=== PATIENT | female | born 1945 | race Caucasian/White ===

== ENCOUNTER → 2018-01-14 13:09 | Outpatient (CLI) | payer MEDICARE, OTHER | END | disposition home or self-care (01) | LOC: D.RT 13:00 | DX: R91.8 Other nonspecific abnormal finding of lung field (principal); J45.909 Unspecified asthma, uncomplicated ==

== ENCOUNTER 2018-12-11 06:35 | Outpatient (CLI) | payer MEDICARE, OTHER ==
[~2018-12-11] VITALS: Ht 160 cm; Wt 68.6 kg
--- NOTE | ~2018-12-11 | HEMODYNAMI ---
PATIENT:DARIA GRAY MEDICAL RECORD: [id number] : 47 LOCATION:[facility] ADMISSION DATE: 12/11/18 Generatedon:12/11/201812:45 Patient name: DARIA GRAY Patient #: [id number] SSN: : 1945 Date of study: 12/11/2018 Page: Of Hemodynamic Procedure Report Patient Data Patient Demographics Procedure consent was obtained First Name: DARIA Gender: Female Last Name: ISAAC : 1945 [facility] Initial: KAHLIL Age: 73 year(s) Patient #: [id number] Race: Unknown Additional ID: [id number] Contact details [address]: [address] [place] [address] DRIVE State: [place] City: [place] Zip code: [address] Admission Admission Data Admission Date: 12/11/2018 Admission Time: 6:35 Procedure Procedure Types Cath Procedure Diagnostic Procedure LHC LHC w/Coronaries Procedure Description Procedure Date Procedure Date: 12/11/2018 Procedure Start Time: 12:33 Procedure End Time: 12:41 Procedure Staff Name Function Dakota Salmeron MD Performing Physician Khadar Jones RT Monitor Aruna Porter RT Scrub Remi Cuellar RN Nurse Procedure Data Cath Procedure Fluoroscopy Diagnostic fluoroscopy Total fluoroscopy Time: 0.8 time: 0.8 min min Diagnostic fluoroscopy Total fluoroscopy dose: 102 dose: 102 mGy mGy Contrast Material Contrast Material Type Amount (ml) Isovue 300 58 Entry Location Entry Primary Successful Side Size Upsize Upsize Entry Closure Succes sful Closure Location (Fr) 1 (Fr) 2 (Fr) Remarks Device Remarks Femoral Right 5 Fr Exoseal artery Estimated blood loss: 10 ml Diagnostic catheters Device Type Used For End Catheter Placement MULTIPACK Pigtail 5 Fr Procedure catheter MULTIPACK JL 4.0 5Fr Procedure catheter MULTIPACK 3DRC 5Fr Procedure catheter Procedure Complications No complications Procedure Medications Medication Administration Route Dosage Oxygen etCO2 Nasal cannula 2 l/min Heparin Flush Bag added to field 2 bags (1000units/500ml NS) 0.9% NaCl I.V. 100 ml/hr Lidocaine 2% added to field 20 Fentanyl I.V. 50 mcg Versed I.V. 1 mg Fentanyl I.V. 50 mcg Versed I.V. 1 mg Hemodynamics Rest Heart Rate: 51 (bpm) Pressure Samples Time Site Value (mmHg) Purpose Heart Use Rate(bpm) 12:36 AO 103/52(73) Snapshot 55 12:36 AO 95/49(67) Snapshot 56 Snapshots Pre Cath Intra NCS Post Cath Vital Signs Time Heart Resp SPO2 etCO2 NIBP Rhythm Pain Sedation Rate (ipm) (%) (mmHg) (mmHg) Status Level (bpm) 12:23:55 54 16 97 0 119/54(79) NSR 0 (11) 10(A) , No pain 12:28:05 48 16 99 0 115/55(76) NSR 0 (11) 10(A) , No pain 12:32:21 54 16 99 0 95/53(67) NSR 0 (11) 10(A) , No pain 12:36:31 56 17 98 0 109/47(69) NSR 0 (11) 9(A) , No pain 12:40:45 56 16 98 0 99/47(71) NSR 0 (11) 9(A) , No pain Medications Time Medication Route Dose Verified Delivered Reason Notes Effe ctiveness by by 12:18:32 Oxygen etCO2 2 Dakota Remi Per Nasal l/min Jaron Cuellar RN physician cannula 12:18:40 Heparin Flush added 2 Dakota Remi used for Bag to bags Jaron Cuellar RN procedure (1000units/500ml field NS) 12:22:32 0.9% NaCl I.V. 100 Dakota Remi Per ml/hr Jaron Cuellar RN physician 12:22:43 Lidocaine 2% added 20ml Dakota Remi used for to vial Jaron Cuellar RN procedure field 12:32:15 Fentanyl I.V. 50 Dakota Remi for mcg Jaron Cuellar RN sedation 12:32:20 Versed I.V. 1 mg Dakota Khalil for Jaron Cuellar RN sedation 12:35:16 Fentanyl I.V. 50 Dakota Remi for mcg Jaron Cuellar RN sedation 12:35:19 Versed I.V. 1 mg Dakota Cuellar RN sedation Procedure Log Time Note 12:00:00 Khadar Jones RT(R) sent for patient. Start room use. 12:08:16 Time tracking: Regular hours (M-F 7:00 - 5:00) 12:08:20 Plan of Care:Hemodynamics will remain stable., Cardiac rhythm will remain stable., Comfort level will be maintained., Respiratory function will remain adequate., Patient/ family verbilizes understanding of procedure., Procedure tolerated without complication., Recovers from procedure without complications.. 12:14:39 Patient received from ED to CCL 3 Alert and oriented. Tansferred to table in Supine position. 12:14:40 Warm blankets applied, and luiza hugger turned on for patient comfort. 12:14:40 Correct patient and procedure confirmed by team. 12:14:43 Signed procedure consent form obtained from patient. 12:14:44 ECG and BP/O2 sat monitors applied to patient. 12:14:45 Full Disclosure recording started 12:18:32 Oxygen 2 l/min etCO2 Nasal cannula was administered by Remi Cuellar RN; Per physician; 12:18:40 Heparin Flush Bag (1000units/500ml NS) 2 bags added to field was administered by Remi Cuellar RN; used for procedure; 12:22:32 0.9% NaCl 100 ml/hr I.V. was administered by Remi Cuellar RN; Per physician; 12:22:43 Lidocaine 2% 20ml vial added to field was administered by Remi Cuellar RN; used for procedure; 12:22:44 Vital chart was started 12:28:35 Baseline sample Acquired. 12:28:41 Rhythm: sinus bradycardia 12:28:49 H&P Date Dictated: 12/11/2018 Emergent; H&P N/A. 12:28:50 Pre-procedure instructions explained to patient. 12:28:51 Pre-op teaching completed and patient verbalized understanding. 12:28:53 Family in patients room. 12:28:56 Patient NPO since Midnight. 12:29:00 Is the patient allergic to Iodine/contrast media? No. 12:29:04 Is patient on blood thinner?Yes 12:29:07 ACC The patient was administered the following blood thiners within the last 24 hours: ACCPlavix 12:29:26 Loaded on Plavix in the ER. 12:29:27 Patient diabetic? Yes. 12:29:29 If diabetic: On Metformin? Yes 12:29:30 If on Metformin: Last Dose? 12/11/2018 12:29:33 Previous problem with sedation/anesthesia? No ? 12:29:38 Snore? Yes 12:29:39 Sleep apnea? Yes 12:29:40 Deviated septum? No 12:29:41 Opens mouth fully? Yes 12:29:42 Sticks out tongue? Yes 12:29:44 Airway obstruction? No ? 12:29:46 Dentures? No ? 12:29:49 Pre procedure: right dorsailis pedis pulse 1+ Palpable, but thready & weak; easily obliterated 12:29:59 IV RIGHT WRIST 12:30:03 Patient pain scale 0/10 ?. 12:30:18 IV patent on arrival in right wrist with 0.9% NaCl at KVO. 12:30:32 Right groin area was prepped with chlora-prep and draped in sterile fashion 12:30:35 Alarms reviewed by R. N. 12:30:36 Sharps counted by scrub and verified by R.N. 12:30:39 Use device set Femoral Dx 12:30:41 Tegaderm 4 x 4 (1626W) opened to sterile field. 12:30:42 ACIST Hand Control (75097) opened to sterile field. 12:30:42 ACIST Manifold (03581) opened to sterile field. 12:30:44 ACIST Syringe (57742) opened to sterile field. 12:30:45 Bag Decanter (2002S) opened to sterile field. 12:30:45 Medline Cath Pack ([id number]) opened to sterile field. 12:30:54 EMERALD Guide Wire (319-026) opened to sterile field. 12:31:01 SHEATH 5FR [place] (XMA941) opened to sterile field. 12:31:02 DIAGNOSTIC Multipack 5Fr catheter set ([id number]) opened to sterile field. 12:31:53 --------ALL STOP TIME OUT------ 12:31:54 Final Timeout: patient, procedure, and site verified with staff and physician. All members of the team are in agreement. 12:31:56 Right groin site verified by team. 12:32:04 Fire Safety Assessment: A--An alcohol-based skin anteseptic being used preoperatively., C--Open oxygen or nitrous oxide is being used., D--An ESU, laser, or fiber-optic light is being used. 12:32:07 Physical assessment completed. ASA score P 2 - A patient with mild systemic disease as per Dakota Salmeron MD. 12:32:10 Sedation plan: IV Moderate Sedation Medication:Versed, Fentanyl 12:32:15 Fentanyl 50 mcg I.V. was administered by Remi Cuellar RN; for sedation; 12:32:20 Versed 1 mg I.V. was administered by Remi Cuellar RN; for sedation; 12:33:35 Procedure started. 12:33:39 Local anesthetic to right femoral artery with Lidocaine 2% by Dakota Salmeron MD.INITIAL ACCESS ONLY 12:35:15 A 5 Fr sheath was inserted into the Right Femoral artery 12:35:16 Fentanyl 50 mcg I.V. was administered by Remi Cuellar RN; for sedation; 12:35:19 Versed 1 mg I.V. was administered by Remi Cuellar RN; for sedation; 12:35:24 A MULTIPACK Pigtail 5 Fr catheter was advanced over the wire and used for Procedure. 12:35:27 LV angiography performed. 12:35:28 LV gram done using CASAREZ 12:35:40 EF : 60 % 12:35:46 Injector settings: Ml/sec: 10, Volume: 20, 12:35:50 Catheter removed. 12:35:56 A MULTIPACK JL 4.0 5Fr catheter was advanced over the wire and used for Procedure. 12:36:11 LCA angiography performed. 12:36:27 Catheter removed. 12:36:42 A MULTIPACK 3DRC 5Fr catheter was advanced over the wire and used for Procedure. 12:37:36 RCA angiography performed. 12:37:38 Catheter removed. 12:37:45 EXOSEAL 5Fr (EX500) opened to sterile field. 12:37:58 Sheath removed intact; hemostasis achieved with Exoseal to the Right Femoral artery. 12:38:00 Procedure ended.(Physican Out) 12:38:16 Fluoroscopy time 00.80 minutes. 12:38:20 Fluoroscopy dose: 102 mGy 12:38:20 Flurop Dose total: 102 12:39:16 Contrast amount:Isovue 300 58ml. 12:39:20 Sharps counted by scrub and verified by R.N. 12:39:23 Insertion/operative site no bleeding no hematoma. 12:39:27 Post-op/insertion site Right Femoral artery dressed using a 4 x 4 and Tegaderm. 12:39:27 Post Procedure Pulses reassessed and unchanged 12:39:30 Post-procedure physical assessment completed. ASA score P 2 - A patient with mild systemic disease as per Dakota Salmeron MD. 12:39:32 Post procedure rhythm: unchanged. 12:39:35 Estimated blood loss: 10 ml 12:39:37 Post procedure instruction explained to patient.Patient verbalizes understanding. 12:39:37 Patient needs reinforcement of post procedure teaching. 12:40:08 Procedure and supply charges have been captured, reviewed, submitted and are correct. 12:40:10 Procedure Complication : No complications 12:40:12 Vital chart was stopped 12:40:13 See physician's report for complete and final results. 12:40:16 Report given to [facility]. 12:41:34 Patient transfered to [facility] with Bed. 12:41:36 Procedure ended. 12:41:36 Full Disclosure recording stopped 12:45:07 End room use (Document Last) Device Usage Item Name Manufacture Quantity Catalog Hospital Part Current Minimal L ot# / Number Charge Number Stock Stock Serial# Code Tegaderm 4 3M 1 1626W [id number] 377408 5 x 4 (1626W) ACIST Hand Acist 1 06273 242786 663963 091039 5 Control Medical (25917) Systems Inc ACIST Acist 1 09092 038227 403284 320586 5 Manifold Medical (54803) Systems Inc ACIST Acist 1 41364 553615 479547 928340 20 Syringe Medical (42740) Systems Inc Bag Microtek 1 766430 73069 252457 5 Decanter Medical Inc. () Medline Medline 1 [id number] 414367 47259 576611 5 Cath Pack ([id number]) EMERALD Cardinal 1 502-455 854472 684089 5 Guide Wire [facility] (502455) SHEATH 5FR Terumo 1 RKW805 945490 600280 651654 5 [place] (COG706) DIAGNOSTIC Cardinal 1 BP8687 132937 70773 196542 30 Multipack Health 5Fr catheter set (HX7447) MULTIPACK Cardinal 1 381663 5 Pigtail 5 Health Fr catheter MULTIPACK Cardinal 1 315164 5 JL 4.0 5Fr Health catheter MULTIPACK Cardinal 1 589347 5 3DRC 5Fr Health catheter EXOSEAL 5Fr Cardinal 1 EX500 376188 174430 808650 10 (EX500) Health Signature Audit [place] Stage Time Signature Unsigned Intra-Procedure 12/11/2018 Khadar Jones 12:45:41 PM RT(R) Signatures Monitor : Khadar Jones RT Signature : Date : Time : [address] [address]
[2018-12-11] MEDS ORDERED: GLUCOPHAGE500 MG PO ×2 (06:51→06:52)
[2018-12-11] MEDS ORDERED: LISINOPRIL-HCT1 EAC8 PO (06:52)
[2018-12-11] MEDS ORDERED: ALENDRONAT70 MG/75 M PO (06:52)
[2018-12-11] MEDS ORDERED: ARICEPT23 MG PO (06:52)
[2018-12-11] MEDS ORDERED: SINGULAIR10 MG PO (06:52)
[2018-12-11] MEDS ORDERED: BAYER CHEWABLE81 MG PO (06:53)
[2018-12-11 06:55] LABS: BASOPHILS 0.1 % (0-2); EOSINOPHILS 0.9 % (0-7); HEMATOCRIT 39.7 % (36.0-48.0); HEMOGLOBIN 13.5 g/dL (12-16); IMMATURE GRANULOCYTES 0.1 % (0-5); LYMPHOCYTES 34.9 % (15-50); MCH 29.3 pg (26.0-34.0); MCV 86.1 fL (80.0-100.0); MEAN PLATELET VOLUME 9.5 fL (7.4-10.4); PLATELET COUNT 243 10x3/uL (130-400); RBC 4.61 10x6/uL (4.00-5.40); RDW 12.4 % (11.5-14.5); WBC 7.4 10x3/uL (4.8-10.8)
[2018-12-11 07:01] LABS: APTT 30.8 SECONDS (22.8-39.4); INR 1.01 (0.85-1.17); PROTIME 12.8 SECONDS (11.6-15.0)
[2018-12-11 07:06] LABS: ALBUMIN 3.8 g/dL (3.4-5.0); ALKALINE PHOSPHATASE 34 U/L (46-116); ALT (SGPT) 37 U/L (10-68); BILIRUBIN - TOTAL 0.44 mg/dL (0.2-1.3); CALC OSMOLALITY 287 mosm/kg (275-300); CARBON DIOXIDE 27.9 mmol/L (21.0-32.0); CHLORIDE - SERUM 103 mmol/L (98-107); CREATININE - SERUM 0.9 mg/dL (0.6-1.3); GLUCOSE 134 mg/dL (74-106); POTASSIUM - SERUM 3.8 mmol/L (3.5-5.1); PROTEIN - SERUM 7.6 g/dL (6.4-8.2); SODIUM 142 mmol/L (136-145); UREA NITROGEN 21 mg/dL (7-18); eGFR NON AFRICAN AMERICAN 65 mL/min (90-120)
[2018-12-11 07:18] LABS: CKMB 1.5 U/L (0.0-3.6); CREATINE KINASE 114 UL (21-215); MAGNESIUM - SERUM 1.5 mg/dL (1.8-2.4); TROPONIN-I < 0.017 ng/mL (0.000-0.060)
--- NOTE | 2018-12-11 13:10 | NUR ---
TRANSFER FROM LEGAL PRACTICE MANAGER. VS WNL. RIGHT GROIN STABLE WITHOUT BLEEDING OR HEMATOMA NOTED. WILL MONITOR.
[2018-12-11 13:22] VITALS: BP 113/58; Ht 160 cm; Wt 68.6 kg
--- NOTE | 2018-12-11 14:51 | NUR ---
BED REST UP. GROIN STABLE.
--- NOTE | 2018-12-11 15:11 | NUR ---
IV AND TELEMETRY DCD. DC PLANS GIVEN. UNDERSTANDING VOICED. ESCORTED TO CAR BY W/C.
--- NOTE | 2018-12-12 17:10 | CN ---
PATIENT NAME:DARIA GRAY MEDICAL RECORD: [id number] : 47 LOCATION:D.CAT ADMIT DATE: ACCOUNT: [id number] CONSULTING PHYSICIAN: KELLY MARQUEZ MD REFERRING PHYSICIAN: KELLY MARQUEZ MD DATE OF CONSULTATION: 12/11/2018 DIAGNOSES: 1. Unstable angina. 2. Hypertension. 3. Non-insulin dependent diabetes. HISTORY OF PRESENT ILLNESS: Mrs. Gray has no previous cardiac history. She began having chest discomfort since last week, it has worsened over the past week. She had severe episodes of chest discomfort with diaphoresis last night. Her EKG is with sinus bradycardia, nonspecific ST-T abnormalities. She continues to have chest pain. PHYSICAL EXAMINATION: GENERAL APPEARANCE: Well-nourished, well-developed, appears stated age. Level of distress, comfortable. PSYCHIATRIC: Mental status, alert, normal affect. Orientation, oriented to time, place and person. EYES: Lids and conjunctiva, noninjected. No discharge, no pallor. ENT: Lips, teeth, gums, normal dentition. Oropharynx, no cyanosis, no pallor. NECK: Carotid arteries, bilateral normal upstroke, no bruits, no thrills. JUGULAR VEINS: No jugular venous pressure or distention. CERVICAL LYMPH NODES: Nontender, nonenlarged. THYROID: Not enlarged. Nontender. No nodules. LUNGS: Respiratory effort, unlabored. CHEST: Normal curvature. No thoracic deformity. No chest wall tenderness. Percussion, resonant. Auscultation, clear. No wheezes, no rales, no rhonchi. CARDIOVASCULAR: Precordial exam, nondisplaced. No heaves or pericardial thrills. Rate and rhythm, regular. Heart sounds, normal S1, normal S2. No S3, no gallop, no rub. Systolic murmur, not heard. Diastolic murmur, not heard. EXTREMITIES: No cyanosis, no edema. Peripheral pulses, full and equal in all extremities, except as noted. No bruits appreciated. ABDOMEN: Soft, nondistended. Normal aorta. No bruit. Nontender. No masses. Liver, nontender, no hepatomegaly. Spleen, nontender, no splenomegaly. MUSCULOSKELETAL: No joint tenderness. No joint swelling. No erythema. NEUROLOGICAL: Normal gait, normal strength, normal tone. SKIN: Warm and dry. OVERALL IMPRESSION: Chest pain in an unstable anginal fashion. We will proceed with coronary angiography. Further care depends upon the findings of the angiography. TRANSINT:[id number] Voice Confirmation ID: [id number] DOCUMENT ID: [id number] CONSULT REPORT [id number] DARIA GRAY JEFFREY MD at 1710 CC: [id number] DICTATION DATE: 12/11/18816 PLASMA PROCESSING TECHNICIAN: 12/11/18 1254 DEP CLI 12/11/18 [place] [id number] [place] [address]
--- NOTE | 2018-12-12 17:10 | OP ---
PATIENT NAME: DARIA GRAY MEDICAL RECORD: [id number] :47 LOCATION:D.CAT ADMISSION DATE: SURGEON: KELLY MARQUEZ MD DATE OF OPERATION: 12/11/2018 PROCEDURES: 1. Left heart catheterization. 2. Selective coronary angiography. 3. Left ventriculogram. INDICATION: Chest pain compatible with angina. PROCEDURE IN DETAIL: After informed consent was obtained and after a detailed explanation of the risks, benefits as well as alternative therapies, the patient elected to proceed with angiogram and heart catheterization. The right femoral area was prepped and draped in normal sterile fashion. Right femoral artery was cannulated via modified Seldinger technique with placement of 5-Portuguese sheath. All catheters exchanged through this sheath. FINDINGS: The left ventriculogram was performed in standard 30-degree CASAREZ view, reveals good cardiac wall motion throughout all segments. Overall ejection fraction estimated 60%. SELECTIVE CORONARY ANGIOGRAPHY: Left main, left anterior descending, left circumflex, right coronary artery are all smooth-walled vessels with no angiographic evidence of coronary artery disease. OVERALL IMPRESSION: 1. No angiographic evidence of coronary artery disease. 2. Normal left heart pressures. 3. Normal left ventricular systolic function. Chest pain is noncardiac in etiology. No further cardiac workup needs to be ascertained. TRANSINT:[id number] Voice Confirmation ID: [id number] DOCUMENT ID: [id number] KELLY MARQUEZ MD at 1710 CC: [id number] DICTATION DATE: 12/11/18 1240 HAT CLEANER: 12/11/18 1329 DEP CLI 12/11/18 [place] [id number] [place] [id number]
== END 2018-12-11 15:22 | disposition home or self-care (01) ==
LOC: D.ER 06:35 → D.CATH 06:35 → EDSTATUS 09:04 → D.M2 12:54 → D.CATH 15:22
PROVIDERS: Family Medicine
DX: I20.0 Unstable angina (principal); R07.9 Chest pain, unspecified; I10 Essential (primary) hypertension; E11.9 Type 2 diabetes mellitus without complications

== ENCOUNTER → 2019-09-04 17:00 | Outpatient (CLI) | payer MEDICARE, OTHER ==
[2018-12-11 13:22] VITALS: BMI 26.8
[~2019-09-04 17:00] MED LIST: ALENDRONAT70 MG/75 M PO; ARICEPT23 MG PO; BAYER CHEWABLE81 MG PO; GLUCOPHAGE500 MG PO; LISINOPRIL-HCT1 EAC8 PO; SINGULAIR10 MG PO
== END | disposition home or self-care (01) ==
LOC: D.MAMMO 10:30
PROVIDERS: ATTEND Family Medicine
DX: Z12.31 Encounter for screening mammogram for malignant neoplasm of breast (principal)